=== PATIENT | male | born 1990 | race Caucasian/White ===

== ENCOUNTER 2016-12-19 02:16 | Emergency (ER) | payer OTHER ==
[2016-12-19 02:28] VITALS: BP 132/76; TEMP 98.4
[2016-12-19] MEDS ORDERED: HYDROCODONE/APAP 5/325 TAB PO ONE (02:53)
--- NOTE | 2016-12-19 03:34 | EDPHY ---
H & P Stated Complaint: FALL DIRECTLY ONTO LEFT BUTTOCK/HIP AREA WHILE PLAYING BASKETBALL Time Seen by Provider: 12/19/16 02:49 HPI/ROS: HPI The patient presents with left-sided lower back and buttock pain which has been present since a fall which occurred earlier this evening. He was playing basketball with friends and someone knocked his legs out from under him, he fell backwards onto his buttocks and had onset of severe, achy pain which got progressively worse throughout the course of the evening. He has noticed a large lump in the area. He took ibuprofen without any improvement. The pain does not radiate, he has been using an ice pack as well.. REVIEW OF SYSTEMS Constitutional: No fever, no chills. Eyes: No discharge. ENT: No sore throat. Cardiovascular: No chest pain, no palpitations. Respiratory: No cough, no shortness of breath. Gastrointestinal: No abdominal pain, no vomiting. Genitourinary: No hematuria. Musculoskeletal: See HPI Skin: No rashes. Neurological: No headache. PMHx: Healthy Soc Hx: Recent [employer] grad PHYSICAL General Appearance: Alert, no distress Eyes: Pupils equal and round no pallor or injection ENT, Mouth: Mucous membranes moist Respiratory: There are no retractions, lungs are clear to auscultation Cardiovascular: Regular rate and rhythm Gastrointestinal: Abdomen is soft and non-tender, no masses, bowel sounds normal Neurological: A&O, moves all extremities Skin: Warm and dry, no rashes Musculoskeletal: Left superior buttocks and lower sacrum with large area which is indurated, tender, with overlying abrasions Extremities: symmetrical, full range of motion Psychiatric: Patient is oriented X 3, there is no agitation Source: Patient Exam Limitations: No limitations - Personal History Current Tetanus/Diphtheria Vaccine: Yes Current Tetanus Diphtheria and Acellular Pertussis (TDAP): Yes - Medical/Surgical History Hx Asthma: No Hx Chronic Respiratory Disease: No Hx Diabetes: No Hx Cardiac Disease: No Hx Renal Disease: No Hx Cirrhosis: No Hx Alcoholism: No Hx HIV/AIDS: No Hx Splenectomy or Spleen Trauma: No Other PMH: DENIES - Social History Smoking Status: Never smoked Constitutional: Initial Vital Signs Temperature (C) 36.9 C 12/19/16 02:25 Heart Rate 58 L 12/19/16 02:25 Respiratory Rate 18 12/19/16 02:25 Blood Pressure 132/76 H 12/19/16 02:25 O2 Sat (%) 95 12/19/16 02:25 O2 Delivery Mode Room Air Allergies/Adverse Reactions: No Known Allergies Allergy (Unverified 12/19/16 02:27) Home Medications: Medication Instructions Recorded morphINE IR [morphINE IR 15 mg (*)] 15 mg PO Q4H PRN #10 tab 12/19/16 Medical Decision Making - Diagnostics Imaging Results: CT scan lumbar spine demonstrates large subcutaneous hematoma, no lumbar fracture demonstrated, discussed with Dr. Parish of Radiology Differential Diagnosis: This is a 26-year-old healthy man who presents after a fall playing basketball with an area of tenderness and edema in his lower lumbar/buttocks region on the left. Differential diagnosis includes hematoma, contusion, lumbar fracture, sacral fracture. In the emergency room, the patient was given an ice pack and [place] for his pain with some improvement. CT scan was checked which demonstrated hematoma with no signs of fracture. I have discussed this result with him. I have issued him crutches per his request. I have advised him to take ibuprofen and Tylenol around the clock as needed for pain and have given him a prescription for morphine for breakthrough pain. I have encouraged him to use ice packs. He will be discharged from the ER. - Data Points Medications Given: Discontinued Medications Hydrocodone Bitart/Acetaminophen ([place] 5/325) 2 tab PO EDNOW ONE Stop: 12/19/16 02:54 Last Admin: 12/19/16 03:06 Dose: 2 tab Departure - Departure Disposition: Home, Routine, Self-Care Clinical Impression: Contusion of lower back Qualifiers: Encounter type: initial encounter Qualified Code(s): S30.0XXA - Contusion of lower back and pelvis, initial encounter Condition: Good Instructions: Morphine, Rapid Release (By mouth), Contusion in Adults (ED) Additional Instructions: You can take ibuprofen 400 mg with acetaminophen 1 g every 6 hours for pain. If the pain is more severe, I have given you a prescription for morphine. This medication can be very addicting. Please be careful with it and take it only as needed. Referrals: NONE *PRIMARY CARE P,. [Primary Care Provider] - As per Instructions Prescriptions: morphINE IR [morphINE IR 15 mg (*)] 15 mg PO Q4H PRN #10 tab PRN Reason: Pain, Breakthrough
[2016-12-19 03:47] VITALS: PULSE 66; RESP 16; O2SAT 96
== END 2016-12-19 03:46 | disposition home or self-care (01) ==
DX: S30.0XXA Contusion of lower back and pelvis, initial encounter (principal); W18.39XA Other fall on same level, initial encounter; Y93.67 Activity, basketball